=== PATIENT | female | born 1980 | race Caucasian/White ===

== ENCOUNTER 2018-08-06 03:04 | Emergency (ER) | payer BC ==
[2018-08-06] MEDS ORDERED: Ondansetron ODT 4 MG TAB ONE (04:19)
[2018-08-06 04:41] LABS: #Basophils 0.1 thou/uL (0.0-0.2); #Eosinphils 0.1 thou/uL (0.0-0.7); #Monocytes 0.7 thou/uL (0.11-0.59); #Neutrophils 7.3 thou/uL (1.40-6.50); %Basophils 0.8 % (0.0-1.0); %Eosinophils 1.5 % (0.0-10.0); %Lymphocytes 19.9 % (21.0-51.0); %Monocytes 6.6 % (0.0-10.0); %Neutrophils 71.3 % (42.0-75.0); Hemoglobin 13.5 g/dL (12.0-16.0); Mean Corpuscular HGB CONC 33.3 g/dL (32.0-36.0); Mean Corpuscular Volume 90.1 fL (78.0-98.0); Mean Platelet Volume 7.2 fL (7.4-10.4); Platelet Count 302 thou/uL (130-400); RBC Distribution Width 11.9 % (11.5-14.5); Red Blood Cell (RBC) Count 4.52 mill/uL (4.20-5.40); White Blood Cell (WBC) Count 10.2 thou/uL (4.8-10.8)
[2018-08-06 04:49] LABS: BHCG - Serum Negative (NEGATIVE); Pregs Control Background? CLEAR/WHITE (CLR/WHITE); Pregs Control Bar Appear? YES (CONTROL BAR)
[2018-08-06 04:54] LABS: ALT (SGPT) 25 U/L (8-55); AST (SGOT) 20 U/L (5-34); Albumin 4.4 g/dL (3.5-5.0); Alkaline Phosphatase 60 U/L (40-150); Anion Gap 13 mmol/L (10-20); BUN (Urea Nitrogen) 9 mg/dL (7.0-18.7); Bilirubin, Total 0.7 mg/dL (0.2-1.2); Calc. Creatinine Clearance 0 mL/min (70-130); Calcium 9.4 mg/dL (7.8-10.44); Carbon Dioxide 28 mmol/L (22-29); Chloride 104 mmol/L (98-107); Estimated GFR-MDRD Greater than 90; Glucose 105 mg/dL (70-105); Lipase 10 U/L (8-78); Potassium 3.9 mmol/L (3.5-5.1); Protein, Total 7.4 g/dL (6.0-8.3); Sodium 141 mmol/L (136-145)
[2018-08-06] MEDS ORDERED: Metoclopramide HCl 10 MG/2 ML VIAL ONE (05:47)
[2018-08-06] MEDS ORDERED: Promethazine HCl 25 MG/ML VIAL ONE (06:17)
--- NOTE | 2018-08-06 07:44 | CT ---
CT OF THE ABDOMEN AND PELVIS WITHOUT IV CONTRAST: INDICATION: History of epigastric abdominal pain with nausea and vomiting for 3 days, possibly small bowel obstru ction. COMPARISON: None. FINDINGS: The lung bases are clear. Unopacified liver, spleen, pancreas, and adrenal glands are unremarkable. The unopacified kidneys ar e unremarkable. No free fluid or enlarged lymph nodes are evident. There is a normal appendix in the right lower quadrant. The unopacified bladder, rectum, and perirectal soft tissues are unremarkable. There is a small amount of diverticula involving the sigmoid colon without evidence of active diverti culitis. Unopacified small bowel are of normal caliber. No free fluid or lymphadenopathy is grossly evident. No definite acute osseous abnormality is evident. IMPRESSION: No acute abnormality. POS: BH
== END 2018-08-06 07:30 | disposition home or self-care (01) ==
LOC: MADERS 03:04
DX: R11.2 Nausea with vomiting, unspecified (principal); F17.210 Nicotine dependence, cigarettes, uncomplicated
CPT/HCPCS: 74176; 80053; 83690; 84703; 85025; 96372; J2550; J2765; Q0162